=== PATIENT | female | born 1975 | race Hispanic/Latino ===

== ENCOUNTER 2017-12-01 17:38 | Emergency (ER) | payer BC ==
[~2017-12-01] VITALS: Ht 152.4 cm; Wt 71.7 kg
[~2017-12-01 17:38] MED LIST: KEFLEX500 MG; NORCO 7.5-3251 EACH PO; ULTRAM50 MG PO; VITAMIN D34000 UNIT PO
[2017-12-01] MEDS ORDERED: MECLIZINE HCL 12.5 MG TAB ONE (18:25)
[2017-12-01] MEDS ORDERED: ONDANSETRON HCL 4 MG ORAL DISINTEGRATING TAB ONE (18:25)
[2017-12-01 20:06] VITALS: BP 164/89
== END 2017-12-01 20:23 | disposition home or self-care (01) ==
LOC: ER 17:38